=== PATIENT | male | born 1975 | race Caucasian/White ===

== ENCOUNTER 2019-05-26 13:26 | Emergency (ER) | payer MEDICAID ==
[~2019-05-26] VITALS: Ht 175.3 cm; Wt 82.1 kg
[2019-05-26 13:51] VITALS: Ht 175.3 cm; Wt 82.1 kg
[2019-05-26 17:33] VITALS: BP 118/79
== END 2019-05-26 17:33 | disposition home or self-care (01) ==
LOC: ED 13:26
DX: J40 Bronchitis, not specified as acute or chronic (principal); J06.9 Acute upper respiratory infection, unspecified
CPT/HCPCS: 87804; J7613; J7644